=== PATIENT | male | born 1970 | race Caucasian/White ===

== ENCOUNTER 2023-10-14 20:10 | Inpatient (IN) | payer SELFPAY ==
[~2023-10-14 20:10] MED LIST: Iopamidol-370 76% 500 ML MDV (1 ML CHARGE) ONE
[2023-10-14 21:18] LABS: Hematocrit 31.1 % (42.0-52.0); Hemoglobin 11.5 g/dL (14.0-18.0); Mean Corpuscular Volume 86.6 fL (78.0-98.0); Platelet Count 37 10x3/uL (130-400); RBC Distribution Width 22.6 % (11.5-14.5); Red Blood Cell (RBC) Count 3.59 mill/uL (4.70-6.10)
[2023-10-14 21:21] LABS: INR-International Normal Ratio 2.7; PTT 44.4 sec (22.9-36.1); Prothrombin Time 29.2 sec (12.0-14.7)
[2023-10-14 21:25] LABS: ALT (SGPT) 78 U/L (8-55); AST (SGOT) 231 U/L (5-34); Acetaminophen Less than 10 mcg/mL (10.0-30.0); Albumin 2.1 g/dL (3.5-5.0); Alcohol Less than 10.0 mg/dL (Less than 10); Alkaline Phosphatase 167 U/L (40-110); Anion Gap 15 mmol/L (10-20); BUN (Urea Nitrogen) 8 mg/dL (8.4-25.7); Calc. Creatinine Clearance 0 mL/min (70-130); Calcium 7.4 mg/dL (7.8-10.44); Carbon Dioxide 18 mmol/L (22-29); Chloride 102 mmol/L (98-107); Estimated GFR 122; Globulin 3.4 g/dL (2.4-3.5); Glucose 88 mg/dL (70-105); Magnesium 1.6 mg/dL (1.6-2.6); Potassium 3.8 mmol/L (3.5-5.1); Protein, Total 5.5 g/dL (6.0-8.3); Salicylate Less than 8.0 mg/dL (15.0-30.0); Sodium 131 mmol/L (136-145)
[2023-10-14 21:53] LABS: Anisocytosis SLIGHT = 6-15 cells HPF (0-5); Band 1 % (5-11); Lymphocytes 2 % (21-51); Macrocytosis SLIGHT = 6-15 cells HPF (0-5); Monocytes 10 % (0-10); Neutrophil 87 % (42-75); Platelet Adequacy Comment Platelets Decreased; Polychromasia SLIGHT = 2-3 cells HPF (0-2); Target Cells MODERATE= 6-15 cells HPF (0-1)
[2023-10-14] MEDS ORDERED: LORazepam 2 MG/ML SYR.(CARPUJECT) ONE (22:51)
[2023-10-14] MEDS ORDERED: cefTRIAXone (ROCEPHIN) 1 GM VIAL ONE (22:51)
[2023-10-14] MEDS ORDERED: Acetaminophen 325 MG TAB PO PRN (23:49)
[2023-10-14] MEDS ORDERED: Ondansetron PF 4 MG/2 ML Vial IVP PRN (23:49)
[2023-10-15] MEDS ORDERED: Lorazepam 2 MG/ML VIAL IM PRN (00:02)
[2023-10-15] MEDS ORDERED: Lorazepam 1 MG TAB PO PRN (00:02)
[2023-10-15] MEDS ORDERED: Electrolyte Replacement Protocol FS SCH (00:15)
[2023-10-15 00:44] VITALS: BMI 39.4
[2023-10-15] MEDS: SODIUM CHLORIDE 0.9% IVPB SCH (00:46)
[2023-10-15] MEDS: PHENOBARBITAL SODIUM IVPB SCH (00:46)
[2023-10-15] MEDS: Multivitamins, Adult 10 ML, Thiamine HCl 100 MG, Folic Acid 1 MG in Dextrose 5 %-0.45 %... IV SCH (00:46)
[2023-10-15 01:45] LABS: Iron 70 ug/dL (65-175); Iron Binding Capacity, Total 251 mcg/dL (261-462)
[2023-10-15] MEDS: Pantoprazole 40 MG VIAL IVP SCH (02:01)
[2023-10-15] MEDS: Magnesium 2 GM/50 ML(in water) 2 GM in Premix 1 BAG IVPB SCH (02:01)
[2023-10-15] MEDS: Furosemide 20 MG (2 mL) VIAL SLOW IVP SCH ×2 (02:02→06:19)
[2023-10-15] MEDS: Thiamine HCl 200 MG/2 ML VIAL SLOW IVP SCH (02:02)
[2023-10-15] MEDS: Phytonadione 10 MG in Sodium Chloride 0.9% 50 ML IVPB SCH (02:05)
[2023-10-15] MEDS: Phytonadione 10 MG/ML AMP SLOW IVP SCH (02:34)
[2023-10-15] MEDS: Magnesium Sulfate 2 GM in Sodium Chloride 0.9% 100 ML IVPB SCH (02:35)
[2023-10-15 04:43] LABS: INR-International Normal Ratio 2.9; PTT 50.4 sec (22.9-36.1); Prothrombin Time 30.5 sec (12.0-14.7)
[2023-10-15 04:54] LABS: Phosphorus 2.8 mg/dL (2.3-4.7)
[2023-10-15 04:55] LABS: Hematocrit 27.2 % (42.0-52.0); Hemoglobin 10.3 g/dL (14.0-18.0); Mean Corpuscular HGB CONC 37.9 g/dL (32.0-36.0); Mean Corpuscular Hemoglobin 31.8 pg (27.0-31.0); Mean Platelet Volume 11.6 fL (7.4-10.4); Platelet Count 40 10x3/uL (130-400); RBC Distribution Width 21.7 % (11.5-14.5); Red Blood Cell (RBC) Count 3.24 mill/uL (4.70-6.10)
[2023-10-15 04:59] LABS: ALT (SGPT) 61 U/L (8-55); AST (SGOT) 183 U/L (5-34); Albumin 1.8 g/dL (3.5-5.0); Alkaline Phosphatase 137 U/L (40-110); Anion Gap 11 mmol/L (10-20); BUN (Urea Nitrogen) 8 mg/dL (8.4-25.7); Bilirubin, Total 21.5 mg/dL (0.2-1.2); Calc. Creatinine Clearance 249 mL/min (70-130); Calcium 7.2 mg/dL (7.8-10.44); Carbon Dioxide 23 mmol/L (22-29); Chloride 102 mmol/L (98-107); Estimated GFR 120; Globulin 2.7 g/dL (2.4-3.5); Glucose 77 mg/dL (70-105); Magnesium 2.1 mg/dL (1.6-2.6); Potassium 3.1 mmol/L (3.5-5.1); Protein, Total 4.5 g/dL (6.0-8.3); Sodium 133 mmol/L (136-145)
[2023-10-15 05:20] LABS: Band 3 % (5-11); Eosinophils 1 % (0-10); Hypochromia SLIGHT = 6-15 cells HPF (0-5); Large Platelets 0.9 % (0-5); Lymphocytes 3 % (21-51); Monocytes 7 % (0-10); Neutrophil 86 % (42-75); Platelet Adequacy Comment Platelets Decreased; Poikilocytosis MODERATE=16-30 cells HPF (0-5); Polychromasia SLIGHT = 2-3 cells HPF (0-2); Target Cells SLIGHT = 2-5 cells HPF (0-1)
[2023-10-15] MEDS: Potassium Chloride 20 MEQ TAB PO SCH (06:16)
[2023-10-15] MEDS: Multivit, Therapeutic 1 TAB PO SCH (08:51)
[2023-10-15] MEDS: Folic Acid 1 MG TAB PO SCH (08:51)
[2023-10-15] MEDS: Phytonadione 5 MG TAB PO SCH (10:36)
[2023-10-15 11:28] LABS: INR-International Normal Ratio 2.8; Prothrombin Time 29.7 sec (12.0-14.7)
[2023-10-15 13:57] LABS: Hematocrit 27.7 % (42.0-52.0); Hemoglobin 10.5 g/dL (14.0-18.0); Mean Corpuscular HGB CONC 37.9 g/dL (32.0-36.0); Mean Corpuscular Hemoglobin 32.8 pg (27.0-31.0); Mean Corpuscular Volume 86.6 fL (78.0-98.0); Mean Platelet Volume 10.1 fL (7.4-10.4); Platelet Count 41 10x3/uL (130-400); RBC Distribution Width 22.3 % (11.5-14.5)
[2023-10-15 14:13] LABS: INR-International Normal Ratio 2.4; Prothrombin Time 26.3 sec (12.0-14.7)
[2023-10-15] MEDS: Furosemide 40 MG (4 mL) VIAL SLOW IVP SCH (14:14)
[2023-10-15] MEDS ORDERED: Sodium Bicarbonate 2.5 MEQ/5 ML SDV ONE (14:15)
[2023-10-15] MEDS ORDERED: Lidocaine 1% PF 5 ML VIAL ONE (14:15)
[2023-10-15 17:22] LABS: RBC Count-Automated (BF) 1314 /cu.mm; WBC/Nucleated-Auto (BF) 0 /cu.mm
[2023-10-15 17:23] LABS: BF Color Yellow; Body Fluid Source Ascites Body Fluid; Clarity Clear (Clear); Tube # EDTA
[2023-10-15] MEDS: cefTRIAXone\\ROCEPHIN 1 GM in Sodium Chloride 0.9% 100 ML IVPB SCH (23:15)
[2023-10-16] MEDS ORDERED: Lorazepam 1 MG TAB PO PRN (00:02)
[2023-10-16 05:16] LABS: Hematocrit 26.9 % (42.0-52.0); Hemoglobin 10.1 g/dL (14.0-18.0); Mean Corpuscular HGB CONC 37.5 g/dL (32.0-36.0); Mean Corpuscular Hemoglobin 31.7 pg (27.0-31.0); Mean Corpuscular Volume 84.3 fL (78.0-98.0); Mean Platelet Volume 10.6 fL (7.4-10.4); Platelet Count 39 10x3/uL (130-400); RBC Distribution Width 22.4 % (11.5-14.5); Red Blood Cell (RBC) Count 3.19 mill/uL (4.70-6.10)
[2023-10-16 05:37] LABS: ALT (SGPT) 60 U/L (8-55); AST (SGOT) 161 U/L (5-34); Albumin 1.7 g/dL (3.5-5.0); Alkaline Phosphatase 119 U/L (40-110); Anion Gap 9 mmol/L (10-20); BUN (Urea Nitrogen) 10 mg/dL (8.4-25.7); Calc. Creatinine Clearance 207 mL/min (70-130); Calcium 7.3 mg/dL (7.8-10.44); Carbon Dioxide 25 mmol/L (22-29); Chloride 103 mmol/L (98-107); Estimated GFR 114; Globulin 2.7 g/dL (2.4-3.5); Glucose 73 mg/dL (70-105); Potassium 3.2 mmol/L (3.5-5.1); Protein, Total 4.4 g/dL (6.0-8.3); Sodium 134 mmol/L (136-145)
[2023-10-16 05:45] LABS: Anisocytosis MODERATE=16-30 cells HPF (0-5); Eosinophils 3 % (0-10); Large Platelets 3.4 % (0-5); Lymphocytes 7 % (21-51); Monocytes 6 % (0-10); Neutrophil 83 % (42-75); Ovalocytes SLIGHT = 2-5 cells HPF (0-1); Platelet Adequacy Comment Significant Decrease; Polychromasia MODERATE = 3-4 cells HPF (0-2); Smudge Cells 22.5 %; Target Cells SLIGHT = 2-5 cells HPF (0-1)
[2023-10-16] MEDS: Potassium Chloride 20 MEQ TAB PO SCH ×2 (05:53→10:24)
[2023-10-16 05:58] LABS: HBCM Index 0.28 S/CO (0-0.79); HBSAB Concentration Less than 8.00 mIU/mL; HBsAg Index 0.29 S/CO (0-0.99); Hep A IgM AB NONREACTIVE (NonReactive); Hep A IgM S/CO 0.24 S/CO (0-0.79); Hep B Surf AB NONREACTIVE (NonReactive); Hep B Surf Ag NONREACTIVE S/CO (NonReactive); Hep C IgG Ab NONREACTIVE S/CO (NonReactive); Hep C Index 0.27 S/CO (0-0.79); Hepatitis B Core IgM Abs NONREACTIVE S/CO (NonReactive)
[2023-10-16] MEDS: prednisoLONE 10 MG ODT TAB PO SCH (17:52)
[2023-10-17] MEDS ORDERED: Lorazepam 1 MG TAB PO PRN (00:02)
[2023-10-17 07:23] LABS: ALT (SGPT) 57 U/L (8-55); AST (SGOT) 159 U/L (5-34); Albumin 1.8 g/dL (3.5-5.0); Alkaline Phosphatase 148 U/L (40-110); Anion Gap 14 mmol/L (10-20); BUN (Urea Nitrogen) 11 mg/dL (8.4-25.7); Bilirubin, Total 21.9 mg/dL (0.2-1.2); Calc. Creatinine Clearance 211 mL/min (70-130); Calcium 7.7 mg/dL (7.8-10.44); Carbon Dioxide 23 mmol/L (22-29); Chloride 101 mmol/L (98-107); Estimated GFR 114; Glucose 121 mg/dL (70-105); Potassium 3.7 mmol/L (3.5-5.1); Protein, Total 4.8 g/dL (6.0-8.3); Sodium 134 mmol/L (136-145)
[2023-10-17 08:19] LABS: #Basophils Less than 0.03 10x3/uL (0.0-0.2); #Eosinphils Less than 0.03 10x3/uL (0.0-0.7); %Lymphocytes 10.1 % (21.0-51.0); %Monocytes 8.5 % (0.0-10.0); %Neutrophils 81.1 % (42.0-75.0); Hematocrit 28.9 % (42.0-52.0); Hemoglobin 10.6 g/dL (14.0-18.0); Mean Corpuscular HGB CONC 36.7 g/dL (32.0-36.0); Mean Corpuscular Hemoglobin 31.9 pg (27.0-31.0); Mean Platelet Volume 10.7 fL (7.4-10.4); Platelet Count 38 10x3/uL (130-400); RBC Distribution Width 22.2 % (11.5-14.5); Red Blood Cell (RBC) Count 3.32 mill/uL (4.70-6.10)
[2023-10-17] MEDS: prednisoLONE 10 MG ODT TAB PO SCH (09:32)
[2023-10-17] MEDS: Spironolactone 100 MG TAB PO SCH (12:43)
[2023-10-18] MEDS ORDERED: Lorazepam 0.5 MG TAB PO PRN (00:02)
[2023-10-18 06:29] VITALS: TEMP 98.3
[2023-10-18] MEDS: Spironolactone 100 MG TAB PO SCH (08:51)
[2023-10-18] MEDS: Thiamine 100 MG TAB PO SCH (08:51)
[2023-10-18 10:15] LABS: Smooth Muscle Total ABS 9 Units (0-19)
[2023-10-18 15:48] VITALS: BP 118/66
[2023-10-19 01:17] LABS: Hepatitis A Total ABS Positive (Negative)
[2023-10-19 11:54] LABS: ANA Symphony (Qualitative) Negative (Negative); ANA Symphony (Quantitative) 0.4 Ratio (< 0.7 Negative); EliA Vaculitis New Method **** NEW METHOD ****; Mitochondrial Ab 1.3 U/mL (<4 Negative)
== END 2023-10-18 17:15 | disposition home or self-care (01) | DRG 433 ==
LOC: ERS 20:10 → 2NO 22:19
PROVIDERS: ADMIT Internal Medicine; ATTEND Hospitalist
PROC: 0W9G3ZZ Drainage of Peritoneal Cavity, Percutaneous Approach (ICD-10-PCS; principal; 2023-10-15)
PROC: 30233K1 Transfusion of Nonautologous Frozen Plasma into Peripheral Vein, Percutaneous Approach (ICD-10-PCS; 2023-10-15)
DX: K70.31 Alcoholic cirrhosis of liver with ascites (principal); D68.9 Coagulation defect, unspecified; K76.6 Portal hypertension; K70.11 Alcoholic hepatitis with ascites; E66.9 Obesity, unspecified; F10.10 Alcohol abuse, uncomplicated; D64.9 Anemia, unspecified; E88.09 Other disorders of plasma-protein metabolism, not elsewhere classified; E80.6 Other disorders of bilirubin metabolism; D69.59 Other secondary thrombocytopenia; K42.9 Umbilical hernia without obstruction or gangrene; K40.90 Unilateral inguinal hernia, without obstruction or gangrene, not specified as recurrent; Z68.37 Body mass index [BMI] 37.0-37.9, adult
CPT/HCPCS: 36415; 36430; 49083; 71045; 74177; 76705; 80053; 80074; 80307; 82105; 82140; 82248; 82274; 82390; 82728; 83516; 83540; 83550; 83605; 83735; 83880; 84100; 84443; 84484; 85025; 85610; 85730; 86015; 86038; 86225; 86706; 86708; 86850; 86900; 86901; 87070; 87205; 89051; 93005; 96374; 96375; C9113; J0696; J1940; J2060; J2560; J3411; J3430; J3475; J3490; J7042; P9059; Q9967

== ENCOUNTER 2023-11-03 14:26 | Inpatient (IN) | payer SELFPAY ==
[2023-11-03 15:11] LABS: Base Excess -1.5 mEq/L (-2.0 to +3.0); Calcium, Ionized (venous) 1.09 mmol/L (1.16-1.32); Chloride (VBG) 104 mmol/L (98-106); Hematocrit-VBG 41 % (42.0-52.0); Hemoglobin (Hb) 14.1 g/dL (13.1-17.2); Potassium (VBG) 4.26 mmol/L (3.70-5.30); Sodium 137 mmol/L (133-146); pH (venous) 7.507 (7.32-7.43)
[2023-11-03 15:19] LABS: INR-International Normal Ratio 1.9; Prothrombin Time 21.8 sec (12.0-14.7)
[2023-11-03 15:20] LABS: PTT 30.2 sec (22.9-36.1)
[2023-11-03 15:31] LABS: Troponin I 0.082 ng/mL (< 0.028)
[2023-11-03 15:31] LABS: #Basophils Less than 0.03 10x3/uL (0.0-0.2); %Basophils 0.1 % (0.0-1.0); %Eosinophils 0.2 % (0.0-10.0); %Lymphocytes 8.1 % (21.0-51.0); %Monocytes 9.3 % (0.0-10.0); %Neutrophils 81.8 % (42.0-75.0); Hematocrit 35.7 % (42.0-52.0); Hemoglobin 13.3 g/dL (14.0-18.0); Mean Corpuscular HGB CONC 37.3 g/dL (32.0-36.0); Mean Corpuscular Hemoglobin 32.3 pg (27.0-31.0); Mean Corpuscular Volume 86.7 fL (78.0-98.0); Platelet Count 51 10x3/uL (130-400); RBC Distribution Width 22.4 % (11.5-14.5); Red Blood Cell (RBC) Count 4.12 mill/uL (4.70-6.10)
[2023-11-03 15:37] LABS: ALT (SGPT) 83 U/L (8-55); AST (SGOT) 108 U/L (5-34); Albumin 2.3 g/dL (3.5-5.0); Alkaline Phosphatase 176 U/L (40-110); Anion Gap 18 mmol/L (10-20); BUN (Urea Nitrogen) 11 mg/dL (8.4-25.7); Bilirubin, Total 16.1 mg/dL (0.2-1.2); Calc. Creatinine Clearance 0 mL/min (70-130); Calcium 8.1 mg/dL (7.8-10.44); Carbon Dioxide 16 mmol/L (22-29); Chloride 106 mmol/L (98-107); Estimated GFR 113; Glucose 78 mg/dL (70-105); Potassium 5.8 mmol/L (3.5-5.1); Protein, Total 6.3 g/dL (6.0-8.3); Sodium 134 mmol/L (136-145)
[2023-11-03 15:50] LABS: Lipase 81 U/L (8-78); Magnesium 1.7 mg/dL (1.6-2.6)
[2023-11-03 15:51] LABS: Acetaminophen Less than 10 mcg/mL (10.0-30.0); Alcohol Less than 10.0 mg/dL (Less than 10); Salicylate Less than 8.0 mg/dL (15.0-30.0)
[2023-11-03] MEDS ORDERED: Ondansetron PF 4 MG/2 ML Vial ONE (16:06)
[2023-11-03] MEDS ORDERED: Cefepime 2 GM VIAL ONE (16:06)
[2023-11-03] MEDS ORDERED: Sodium Chloride 0.9% 100 ML ONE (16:06)
[2023-11-03 16:08] LABS: Anisocytosis SLIGHT = 6-15 cells (100X) (0-5/hpf); Platelet Adequacy Comment Appears Decreased; Polychromasia SLIGHT = 2-3 cells (100X) (0-2/hpf)
[2023-11-03] MEDS ORDERED: Lactulose 20 GM (30 mL) UDCUP ONE (16:51)
[2023-11-03 17:52] LABS: CAUTI Indications for Culture Alt mental st,lethar; Clarity Clear (Clear); Squamous Epithelial 0-3 HPF (0-3)
[2023-11-03 18:00] LABS: Amphetamine Not Detected (NotDetected); Barbiturates Screen Not Detected (NotDetected); Benzodiazepine Screen Not Detected (NotDetected); Cocaine Metabolite Screen Not Detected (NotDetected); Leukocyte Unable to Interpret Leu/uL (Negative); Methadone Not Detected (NotDetected); Methamphetamine Not Detected (NotDetected); Nitrite Unable to Interpret (Negative); Opiate Screen Not Detected (NotDetected); Oxycodone Screen Not Detected (NotDetected); Phencyclidine (PCP) Not Detected (NotDetected); Specific Gravity, Urine 1.026 (1.002-1.036); THC/Cannabinoid Screen Not Detected (NotDetected); Tricyclic Screen Not Detected (NotDetected); pH, Urine 6.5 (5.0-9.0)
[2023-11-03 18:01] LABS: Bilirubin Unable to Interpret (Negative); Blood, Urine Unable to Interpret (Negative); Glucose, Urine (Dipstick) Unable to Interpret mg/dL (Negative); Ketone, Urine Unable to Interpret mg/dL (Negative); Protein, Urine (Dipstick) Unable to Interpret mg/dL (Neg-Trace); Urobilinogen UNABLE TO INTERPRET mg/dL (Less than 2)
[2023-11-03 18:04] LABS: Bacteria/HPF 1+ HPF (None Seen)
[2023-11-03 18:05] LABS: Urine Culture Reflex No No
[2023-11-03] MEDS: Vancomycin (BATCH) 2.5 GM in Premix 1 BAG IVPB SCH (18:20)
[2023-11-03 18:45] LABS: Lactic Acid 2.6 mmol/L (0.5-2.2)
[2023-11-03 19:00] LABS: Influenza A by NAA Not Detected (NotDetected); Influenza B by NAA Not Detected (NotDetected); SARS-CoV-2 NAA Rapid Test Not Detected (NotDetected)
[2023-11-03] MEDS ORDERED: Ondansetron ODT 4 MG TAB PO PRN (20:13)
[2023-11-03] MEDS ORDERED: Acetaminophen 325 MG TAB PO PRN (20:13)
[2023-11-03] MEDS ORDERED: Ondansetron PF 4 MG/2 ML Vial IVP PRN (20:13)
[2023-11-03] MEDS ORDERED: Acetaminophen 650 MG Suppository PR PRN (20:13)
[2023-11-03] MEDS ORDERED: Lorazepam 2 MG/ML VIAL IM PRN (20:18)
[2023-11-03] MEDS ORDERED: Electrolyte Replacement Protocol 1 EACH FS SCH (20:30)
[2023-11-03] MEDS ORDERED: Magnesium 2 GM/50 ML BAG (IN WATER) ONE (21:20)
[2023-11-03] MEDS ORDERED: Albumin 25% 100 ML ONE (21:20)
[2023-11-03] MEDS ORDERED: Thiamine HCl 200 MG/2 ML VIAL ONE (21:20)
[2023-11-03] MEDS ORDERED: Thiamine 100 MG TAB ONE (21:22)
[2023-11-03] MEDS: Magnesium 2 GM/50 ML(in water) 2 GM in Premix 1 BAG IVPB SCH (21:24)
[2023-11-03] MEDS: Albumin 25% 25 GM (100 mL) BOT IVPB SCH (21:24)
[2023-11-03] MEDS: Thiamine 100 MG TAB PO SCH (21:24)
[2023-11-03] MEDS ORDERED: Lorazepam 1 MG TAB ONE (22:04)
[2023-11-03] MEDS: Lorazepam 1 MG TAB PO PRN (22:10)
[2023-11-03 23:00] LABS: Lactic Acid 3.5 mmol/L (0.5-2.2)
[2023-11-03 23:09] LABS: Troponin I 0.058 ng/mL (< 0.028)
[2023-11-04] MEDS ORDERED: Sodium Chloride 0.9% 100 ML ONE (05:29)
[2023-11-04] MEDS ORDERED: Cefepime 1 GM VIAL ONE (05:29)
[2023-11-04] MEDS: Cefepime 1 GM in Sodium Chloride 0.9% 100 ML IVPB SCH (05:31)
[2023-11-04 05:41] LABS: #Basophils Less than 0.03 10x3/uL (0.0-0.2); %Basophils 0.2 % (0.0-1.0); %Lymphocytes 10.2 % (21.0-51.0); %Monocytes 9.7 % (0.0-10.0); %Neutrophils 77.3 % (42.0-75.0); Hematocrit 31.4 % (42.0-52.0); Hemoglobin 11.3 g/dL (14.0-18.0); Mean Corpuscular Hemoglobin 32.4 pg (27.0-31.0); Mean Platelet Volume 10.1 fL (7.4-10.4); Platelet Count 35 10x3/uL (130-400); RBC Distribution Width 22.8 % (11.5-14.5); Red Blood Cell (RBC) Count 3.49 mill/uL (4.70-6.10)
[2023-11-04 05:49] LABS: ALT (SGPT) 63 U/L (8-55); AST (SGOT) 64 U/L (5-34); Albumin 2.1 g/dL (3.5-5.0); Alkaline Phosphatase 114 U/L (40-110); Anion Gap 14 mmol/L (10-20); BUN (Urea Nitrogen) 11 mg/dL (8.4-25.7); Bilirubin, Total 14.9 mg/dL (0.2-1.2); Calc. Creatinine Clearance 254 mL/min (70-130); Calcium 7.7 mg/dL (7.8-10.44); Carbon Dioxide 18 mmol/L (22-29); Chloride 110 mmol/L (98-107); Estimated GFR 120; Glucose 79 mg/dL (70-105); Potassium 3.8 mmol/L (3.5-5.1); Protein, Total 5.1 g/dL (6.0-8.3); Sodium 138 mmol/L (136-145)
[2023-11-04] MEDS ORDERED: Folic Acid 1 MG TAB ONE (10:00)
[2023-11-04] MEDS ORDERED: Lactulose 20 GM (30 mL) UDCUP ONE (10:01)
[2023-11-04] MEDS ORDERED: Pantoprazole DR 40 MG TAB ONE (10:01)
[2023-11-04] MEDS ORDERED: predniSONE 20 MG TAB ONE (10:01)
[2023-11-04] MEDS ORDERED: Furosemide 40 MG TAB ONE (10:01)
[2023-11-04] MEDS ORDERED: Multivit, Therapeutic 1 TAB ONE (10:01)
[2023-11-04] MEDS: Spironolactone 100 MG TAB PO SCH (10:31)
[2023-11-04] MEDS: Lactulose 20 GM (30 mL) UDCUP PO SCH (10:31)
[2023-11-04] MEDS: Pantoprazole DR 40 MG TAB PO SCH (10:31)
[2023-11-04] MEDS: Multivit, Therapeutic 1 TAB PO SCH (10:31)
[2023-11-04] MEDS: Folic Acid 1 MG TAB PO SCH (10:31)
[2023-11-04] MEDS: Furosemide 40 MG TAB PO SCH (10:31)
[2023-11-04] MEDS: prednisoLONE 10 MG ODT TAB PO SCH (10:31)
[2023-11-04] MEDS ORDERED: Lidocaine 1% PF 5 ML VIAL ONE (11:26)
[2023-11-04 14:25] VITALS: BMI 31.8
[2023-11-04] MEDS: Albumin 25% 25 GM (100 mL) BOT IVPB SCH (16:29)
[2023-11-04] MEDS: Cefepime 2 GM in Sodium Chloride 0.9% 100 ML IVPB SCH (16:31)
[2023-11-04] MEDS: Vancomycin (BATCH) 1.25 GM in Premix 1 BAG IVPB SCH (16:59)
[2023-11-04] MEDS ORDERED: Lorazepam 1 MG TAB PO PRN (20:19)
[2023-11-04] MEDS ORDERED: Vancomycin 1 GM in Sodium Chloride 0.9% 250 ML 250 ML IVPB SCH (21:00)
[2023-11-05] MEDS ORDERED: Acetaminophen 650 MG/20.3 ML UDCUP PO PRN (01:52)
[2023-11-05] MEDS: Vancomycin (BATCH) 1.25 GM in Premix 1 BAG IVPB SCH ×2 (02:13→12:53)
[2023-11-05 04:43] LABS: Lactic Acid 1.7 mmol/L (0.5-2.2)
[2023-11-05 04:47] LABS: Vancomycin, Random 39.5 ug/mL (See Comment)
[2023-11-05 04:51] LABS: ALT (SGPT) 56 U/L (8-55); AST (SGOT) 63 U/L (5-34); Albumin 2.1 g/dL (3.5-5.0); Alkaline Phosphatase 103 U/L (40-110); Anion Gap 11 mmol/L (10-20); BUN (Urea Nitrogen) 12 mg/dL (8.4-25.7); Bilirubin, Total 13.5 mg/dL (0.2-1.2); Calc. Creatinine Clearance 209 mL/min (70-130); Calcium 7.8 mg/dL (7.8-10.44); Carbon Dioxide 17 mmol/L (22-29); Chloride 107 mmol/L (98-107); Estimated GFR 121; Globulin 2.8 g/dL (2.4-3.5); Glucose 116 mg/dL (70-105); Magnesium 1.6 mg/dL (1.6-2.6); Potassium 3.4 mmol/L (3.5-5.1); Protein, Total 4.9 g/dL (6.0-8.3); Sodium 132 mmol/L (136-145)
[2023-11-05 06:09] LABS: #Basophils Less than 0.03 10x3/uL (0.0-0.2); %Basophils 0.1 % (0.0-1.0); %Eosinophils 2.7 % (0.0-10.0); %Lymphocytes 13.8 % (21.0-51.0); %Monocytes 9.9 % (0.0-10.0); %Neutrophils 73.1 % (42.0-75.0); Hematocrit 28.9 % (42.0-52.0); Hemoglobin 10.6 g/dL (14.0-18.0); Mean Corpuscular HGB CONC 36.7 g/dL (32.0-36.0); Mean Corpuscular Hemoglobin 32.2 pg (27.0-31.0); Mean Corpuscular Volume 87.8 fL (78.0-98.0); Platelet Count 35 10x3/uL (130-400); RBC Distribution Width 22.5 % (11.5-14.5); Red Blood Cell (RBC) Count 3.29 mill/uL (4.70-6.10)
[2023-11-05] MEDS: Potassium Chloride 20 MEQ TAB PO SCH (09:40)
[2023-11-05] MEDS: Magnesium 2 GM/50 ML(in water) 2 GM in Premix 1 BAG IVPB SCH (09:40)
[2023-11-05] MEDS: prednisoLONE 10 MG ODT TAB PO SCH (09:41)
[2023-11-05] MEDS: Lorazepam 1 MG TAB PO PRN (21:02)
[2023-11-05] MEDS: diphenhydrAMINE 25 MG CAP PO SCH (21:55)
[2023-11-06 05:43] LABS: Anion Gap 11 mmol/L (10-20); BUN (Urea Nitrogen) 10 mg/dL (8.4-25.7); Calc. Creatinine Clearance 226 mL/min (70-130); Calcium 7.6 mg/dL (7.8-10.44); Carbon Dioxide 19 mmol/L (22-29); Chloride 108 mmol/L (98-107); Estimated GFR 124; Glucose 82 mg/dL (70-105); Potassium 4.1 mmol/L (3.5-5.1); Sodium 134 mmol/L (136-145)
[2023-11-06 06:12] LABS: Vancomycin, Random 20.6 ug/mL (See Comment)
[2023-11-06 12:06] VITALS: BP 105/60; TEMP 98
[2023-11-06] MEDS ORDERED: Lorazepam 0.5 MG TAB PO PRN (20:19)
== END 2023-11-06 16:43 | disposition home or self-care (01) | DRG 872 ==
LOC: ERS 14:26 → 2NO 18:45 → ERHOLD 18:56 → 2NO 11-04 12:55
PROVIDERS: ADMIT Student in an Organized Health Care Education/Training Program; ATTEND Internal Medicine
DX: A41.01 Sepsis due to Methicillin susceptible Staphylococcus aureus (principal); I24.89 Other forms of acute ischemic heart disease; K70.30 Alcoholic cirrhosis of liver without ascites; E87.5 Hyperkalemia; D69.6 Thrombocytopenia, unspecified; K76.82 Hepatic encephalopathy; Z87.891 Personal history of nicotine dependence; E87.6 Hypokalemia; T38.0X5A Adverse effect of glucocorticoids and synthetic analogues, initial encounter; Z79.899 Other long term (current) drug therapy
CPT/HCPCS: 36415; 49083; 70450; 71045; 80048; 80053; 80202; 80306; 80307; 81001; 82140; 82248; 82805; 83605; 83690; 83735; 83880; 84484; 85025; 85610; 85730; 87040; 87077; 87086; 87186; 93005; 94760; J0692; J2405; J3370; J3411; J3475; J3490; J7512; P9047

== ENCOUNTER 2023-12-11 13:11 | Inpatient (IN) | payer SELFPAY ==
[2023-12-11 15:12] LABS: #Basophils 0.03 10x3/uL (0.0-0.2); %Basophils 0.3 % (0.0-1.0); %Eosinophils 0.7 % (0.0-10.0); %Lymphocytes 10.7 % (21.0-51.0); %Monocytes 12.2 % (0.0-10.0); %Neutrophils 75.8 % (42.0-75.0); Hematocrit 32.1 % (42.0-52.0); Mean Corpuscular HGB CONC 37.4 g/dL (32.0-36.0); Mean Corpuscular Hemoglobin 32.7 pg (27.0-31.0); Mean Corpuscular Volume 87.5 fL (78.0-98.0); Platelet Count 96 10x3/uL (130-400); RBC Distribution Width 18.8 % (11.5-14.5); Red Blood Cell (RBC) Count 3.67 mill/uL (4.70-6.10)
[2023-12-11 15:19] LABS: Actual Bicarbonate (HCO3v) 17.3 mEq/L (22-28); Analyzer IN Cardio ER; Base Excess -6.1 mEq/L (-2.0 to +3.0); Calcium, Ionized (venous) 1.04 mmol/L (1.16-1.32); Chloride (VBG) 101 mmol/L (98-106); Hematocrit-VBG 38 % (42.0-52.0); Potassium (VBG) 4.77 mmol/L (3.70-5.30); Sodium 128 mmol/L (133-146); pH (venous) 7.404 (7.32-7.43)
[2023-12-11 15:20] LABS: ALT (SGPT) 112 U/L (8-55); AST (SGOT) 241 U/L (5-34); Albumin 1.9 g/dL (3.5-5.0); Alkaline Phosphatase 182 U/L (40-110); Anion Gap 14 mmol/L (10-20); BUN (Urea Nitrogen) 19 mg/dL (8.4-25.7); Bilirubin, Total 10.5 mg/dL (0.2-1.2); Calc. Creatinine Clearance 0 mL/min (70-130); Calcium 7.7 mg/dL (7.8-10.44); Carbon Dioxide 15 mmol/L (22-29); Chloride 105 mmol/L (98-107); Estimated GFR 105; Globulin 4.1 g/dL (2.4-3.5); Glucose 88 mg/dL (70-105); Lipase 285 U/L (8-78); Magnesium 1.7 mg/dL (1.6-2.6); Potassium 4.9 mmol/L (3.5-5.1); Sodium 129 mmol/L (136-145)
[2023-12-11 15:23] LABS: Troponin I 0.018 ng/mL (< 0.028)
[2023-12-11] MEDS ORDERED: Lactulose 20 GM (30 mL) UDCUP ONE (15:26)
[2023-12-11] MEDS ORDERED: Thiamine HCl 200 MG/2 ML VIAL ONE (15:33)
[2023-12-11 16:22] LABS: Acetaminophen Less than 10 mcg/mL (10.0-30.0); Alcohol Less than 10.0 mg/dL (Less than 10); Salicylate Less than 8.0 mg/dL (15.0-30.0)
[2023-12-11 18:18] LABS: Lactic Acid 3.6 mmol/L (0.5-2.2)
[2023-12-11 19:19] VITALS: BMI 35.4
[2023-12-11] MEDS: Thiamine 100 MG TAB PO SCH (21:06)
[2023-12-11] MEDS: Lactulose 20 GM (30 mL) UDCUP PO SCH (21:06)
[2023-12-11] MEDS: Sodium Bicarb 50 mEq/50 ML VIAL IVP SCH (21:06)
[2023-12-11] MEDS: Albumin 25% 25 GM (100 mL) BOT IVPB SCH (22:40)
[2023-12-12 06:25] LABS: #Basophils 0.05 10x3/uL (0.0-0.2); %Basophils 0.6 % (0.0-1.0); %Eosinophils 2.8 % (0.0-10.0); %Lymphocytes 13.3 % (21.0-51.0); %Monocytes 17.9 % (0.0-10.0); %Neutrophils 64.9 % (42.0-75.0); Hematocrit 27.4 % (42.0-52.0); Hemoglobin 10.2 g/dL (14.0-18.0); Mean Corpuscular HGB CONC 37.2 g/dL (32.0-36.0); Mean Corpuscular Hemoglobin 32.4 pg (27.0-31.0); Mean Platelet Volume 9.9 fL (7.4-10.4); Platelet Count 76 10x3/uL (130-400); RBC Distribution Width 18.6 % (11.5-14.5); Red Blood Cell (RBC) Count 3.15 mill/uL (4.70-6.10)
[2023-12-12 06:27] LABS: Lactic Acid 2.2 mmol/L (0.5-2.2); Lactic Acid 2.3 mmol/L (0.5-2.2)
[2023-12-12 06:33] LABS: ALT (SGPT) 86 U/L (8-55); AST (SGOT) 180 U/L (5-34); Albumin 1.9 g/dL (3.5-5.0); Alkaline Phosphatase 120 U/L (40-110); Anion Gap 13 mmol/L (10-20); BUN (Urea Nitrogen) 18 mg/dL (8.4-25.7); Calc. Creatinine Clearance 155 mL/min (70-130); Calcium 7.5 mg/dL (7.8-10.44); Carbon Dioxide 17 mmol/L (22-29); Chloride 107 mmol/L (98-107); Estimated GFR 106; Globulin 3.2 g/dL (2.4-3.5); Glucose 81 mg/dL (70-105); Potassium 3.9 mmol/L (3.5-5.1); Protein, Total 5.1 g/dL (6.0-8.3); Sodium 133 mmol/L (136-145)
[2023-12-12 07:39] LABS: INR-International Normal Ratio 2.6; PTT 55.6 sec (22.9-36.1)
[2023-12-12] MEDS: Spironolactone 100 MG TAB PO SCH (08:42)
[2023-12-12] MEDS: Multivit, Therapeutic 1 TAB PO SCH (08:42)
[2023-12-12] MEDS: Pantoprazole DR 40 MG TAB PO SCH (08:42)
[2023-12-12] MEDS: Furosemide 40 MG TAB PO SCH (08:42)
[2023-12-12] MEDS: prednisoLONE 10 MG ODT TAB PO SCH (08:42)
[2023-12-12] MEDS: Folic Acid 1 MG TAB PO SCH (08:42)
[2023-12-12] MEDS ORDERED: CEFAZOLIN 2 GM in Sodium Chloride 0.9% 100 ML IVPB SCH (14:00)
[2023-12-12] MEDS: Ondansetron PF 4 MG/2 ML Vial IVP PRN (18:05)
[2023-12-12] MEDS: Lactulose 20 GM (30 mL) UDCUP PO SCH (20:12)
[2023-12-12] MEDS: Cefepime 1 GM in Sodium Chloride 0.9% 100 ML IVPB SCH (20:12)
[2023-12-12] MEDS: hydrOXYzine 25 MG TAB PO SCH (20:55)
[2023-12-13 06:43] LABS: #Basophils Less than 0.03 10x3/uL (0.0-0.2); #Eosinphils Less than 0.03 10x3/uL (0.0-0.7); %Basophils 0.2 % (0.0-1.0); %Eosinophils 0.2 % (0.0-10.0); %Lymphocytes 11.5 % (21.0-51.0); %Monocytes 12.2 % (0.0-10.0); %Neutrophils 75.6 % (42.0-75.0); Hematocrit 28.3 % (42.0-52.0); Hemoglobin 10.6 g/dL (14.0-18.0); Mean Corpuscular HGB CONC 37.5 g/dL (32.0-36.0); Mean Corpuscular Hemoglobin 32.3 pg (27.0-31.0); Mean Corpuscular Volume 86.3 fL (78.0-98.0); Mean Platelet Volume 10.7 fL (7.4-10.4); Platelet Count 69 10x3/uL (130-400); RBC Distribution Width 18.6 % (11.5-14.5); Red Blood Cell (RBC) Count 3.28 mill/uL (4.70-6.10)
[2023-12-13 07:11] LABS: ALT (SGPT) 80 U/L (8-55); AST (SGOT) 150 U/L (5-34); Albumin 1.8 g/dL (3.5-5.0); Alkaline Phosphatase 109 U/L (40-110); Anion Gap 11 mmol/L (10-20); BUN (Urea Nitrogen) 16 mg/dL (8.4-25.7); Bilirubin, Total 8.1 mg/dL (0.2-1.2); Calc. Creatinine Clearance 158 mL/min (70-130); Calcium 7.7 mg/dL (7.8-10.44); Carbon Dioxide 19 mmol/L (22-29); Chloride 109 mmol/L (98-107); Estimated GFR 107; Globulin 3.3 g/dL (2.4-3.5); Glucose 95 mg/dL (70-105); Potassium 4.4 mmol/L (3.5-5.1); Protein, Total 5.1 g/dL (6.0-8.3); Sodium 135 mmol/L (136-145)
[2023-12-13] MEDS ORDERED: Lidocaine 1% PF 5 ML VIAL ONE (15:48)
[2023-12-13] MEDS ORDERED: Sodium Bicarbonate 2.5 MEQ/5 ML SDV ONE (15:49)
[2023-12-13] MEDS ORDERED: Albumin 25% 100 ML ONE ×2 (17:04→17:27)
[2023-12-13 19:56] LABS: RBC Count-Automated (BF) 496 /cu.mm; WBC/Nucleated-Auto (BF) 219 /cu.mm
[2023-12-13 20:05] LABS: BF Color Yellow; Body Fluid Source Ascites Body Fluid; Clarity Clear (Clear); Tube # EDTA
[2023-12-13 20:15] LABS: Fluid, Glucose 105 mg/dL (Not Available); Fluid, LDH 43 U/L (Not Available); Fluid, Protein Less than 0.8 g/dL (Not Available)
[2023-12-13 20:19] LABS: BF Segmented Neutrophils 35 %; Cell Count Non Hematic 53 %; Lymphocytes 12 %
[2023-12-13] MEDS: Cefepime 2 GM in Sodium Chloride 0.9% 100 ML IVPB SCH (20:23)
[2023-12-13] MEDS: hydrOXYzine 25 MG TAB PO SCH (21:05)
[2023-12-14 07:21] LABS: ALT (SGPT) 66 U/L (8-55); AST (SGOT) 115 U/L (5-34); Albumin 2.3 g/dL (3.5-5.0); Alkaline Phosphatase 130 U/L (40-110); Anion Gap 10 mmol/L (10-20); BUN (Urea Nitrogen) 16 mg/dL (8.4-25.7); Bilirubin, Total 7.1 mg/dL (0.2-1.2); Calc. Creatinine Clearance 155 mL/min (70-130); Calcium 7.6 mg/dL (7.8-10.44); Carbon Dioxide 19 mmol/L (22-29); Chloride 111 mmol/L (98-107); Estimated GFR 106; Globulin 2.9 g/dL (2.4-3.5); Glucose 79 mg/dL (70-105); Magnesium 1.7 mg/dL (1.6-2.6); Protein, Total 5.2 g/dL (6.0-8.3); Sodium 136 mmol/L (136-145)
[2023-12-14 07:23] LABS: #Basophils 0.03 10x3/uL (0.0-0.2); %Basophils 0.4 % (0.0-1.0); %Eosinophils 2.9 % (0.0-10.0); %Lymphocytes 18.1 % (21.0-51.0); %Monocytes 16.7 % (0.0-10.0); %Neutrophils 61.5 % (42.0-75.0); Hematocrit 28.1 % (42.0-52.0); Hemoglobin 10.4 g/dL (14.0-18.0); Mean Corpuscular Hemoglobin 32.7 pg (27.0-31.0); Mean Corpuscular Volume 88.4 fL (78.0-98.0); Platelet Count 64 10x3/uL (130-400); RBC Distribution Width 18.8 % (11.5-14.5); Red Blood Cell (RBC) Count 3.18 mill/uL (4.70-6.10)
[2023-12-14 07:27] LABS: INR-International Normal Ratio 2.6; PTT 54.2 sec (22.9-36.1)
[2023-12-14] MEDS: cefTRIAXone\\ROCEPHIN 2 GM in Sodium Chloride 0.9% 100 ML IVPB SCH (20:27)
[2023-12-14] MEDS: Melatonin 3 MG TAB PO PRN (21:19)
[2023-12-14] MEDS: hydrOXYzine 25 MG TAB PO SCH (21:19)
[2023-12-15 06:40] LABS: #Basophils 0.03 10x3/uL (0.0-0.2); %Basophils 0.4 % (0.0-1.0); %Eosinophils 3.8 % (0.0-10.0); %Monocytes 16.3 % (0.0-10.0); Hematocrit 30.6 % (42.0-52.0); Hemoglobin 11.2 g/dL (14.0-18.0); Mean Corpuscular HGB CONC 36.6 g/dL (32.0-36.0); Mean Corpuscular Hemoglobin 32.7 pg (27.0-31.0); Mean Corpuscular Volume 89.2 fL (78.0-98.0); Mean Platelet Volume 10.9 fL (7.4-10.4); Platelet Count 64 10x3/uL (130-400); RBC Distribution Width 18.6 % (11.5-14.5); Red Blood Cell (RBC) Count 3.43 mill/uL (4.70-6.10)
[2023-12-15 06:41] LABS: INR-International Normal Ratio 2.4; PTT 51.9 sec (22.9-36.1); Prothrombin Time 26.4 sec (12.0-14.7)
[2023-12-15 06:47] LABS: ALT (SGPT) 64 U/L (8-55); AST (SGOT) 108 U/L (5-34); Albumin 2.3 g/dL (3.5-5.0); Alkaline Phosphatase 175 U/L (40-110); Anion Gap 11 mmol/L (10-20); BUN (Urea Nitrogen) 15 mg/dL (8.4-25.7); Bilirubin, Total 7.2 mg/dL (0.2-1.2); Calc. Creatinine Clearance 167 mL/min (70-130); Calcium 7.7 mg/dL (7.8-10.44); Carbon Dioxide 20 mmol/L (22-29); Chloride 106 mmol/L (98-107); Estimated GFR 109; Globulin 3.4 g/dL (2.4-3.5); Glucose 75 mg/dL (70-105); Magnesium 1.7 mg/dL (1.6-2.6); Protein, Total 5.7 g/dL (6.0-8.3); Sodium 133 mmol/L (136-145)
[2023-12-15] MEDS ORDERED: Iopamidol-370 76% 500 ML MDV (1 ML CHARGE) ONE (15:49)
[2023-12-15] MEDS: Morphine 2 MG/ML VIAL SLOW IVP SCH (20:09)
[2023-12-15] MEDS: hydrOXYzine 25 MG TAB PO SCH (23:13)
[2023-12-16 05:33] LABS: Chlam.trachomatis by PCR,Urine Not Detected (NotDetected); GC N.gonorrhoeae PCR,UrineVOID Not Detected (NotDetected)
[2023-12-16 06:43] LABS: #Basophils Less than 0.03 10x3/uL (0.0-0.2); %Basophils 0.3 % (0.0-1.0); %Eosinophils 4.9 % (0.0-10.0); %Lymphocytes 17.3 % (21.0-51.0); %Monocytes 16.2 % (0.0-10.0); %Neutrophils 60.7 % (42.0-75.0); Hematocrit 26.7 % (42.0-52.0); Hemoglobin 9.9 g/dL (14.0-18.0); Mean Corpuscular HGB CONC 37.1 g/dL (32.0-36.0); Mean Platelet Volume 10.2 fL (7.4-10.4); Platelet Count 53 10x3/uL (130-400); RBC Distribution Width 18.6 % (11.5-14.5)
[2023-12-16 06:55] LABS: INR-International Normal Ratio 2.3; Prothrombin Time 25.6 sec (12.0-14.7)
[2023-12-16 06:59] LABS: ALT (SGPT) 54 U/L (8-55); AST (SGOT) 85 U/L (5-34); Alkaline Phosphatase 129 U/L (40-110); Anion Gap 10 mmol/L (10-20); BUN (Urea Nitrogen) 16 mg/dL (8.4-25.7); Bilirubin, Total 6.8 mg/dL (0.2-1.2); Calc. Creatinine Clearance 156 mL/min (70-130); Calcium 7.5 mg/dL (7.8-10.44); Carbon Dioxide 20 mmol/L (22-29); Chloride 106 mmol/L (98-107); Estimated GFR 107; Globulin 3.1 g/dL (2.4-3.5); Glucose 109 mg/dL (70-105); Magnesium 1.8 mg/dL (1.6-2.6); Potassium 4.2 mmol/L (3.5-5.1); Protein, Total 5.1 g/dL (6.0-8.3); Sodium 132 mmol/L (136-145)
[2023-12-16] MEDS: traMADol HCl 50 MG TAB PO SCH (22:38)
[2023-12-16] MEDS: hydrOXYzine 25 MG TAB PO SCH (22:40)
[2023-12-17] MEDS ORDERED: Sodium Bicarbonate 2.5 MEQ/5 ML SDV ONE (07:09)
[2023-12-17] MEDS ORDERED: Lidocaine 1% PF 5 ML VIAL ONE (07:10)
[2023-12-17 07:17] LABS: Hematocrit 26.9 % (42.0-52.0); Mean Corpuscular HGB CONC 37.2 g/dL (32.0-36.0); Mean Corpuscular Hemoglobin 32.2 pg (27.0-31.0); Mean Corpuscular Volume 86.5 fL (78.0-98.0); Mean Platelet Volume 10.6 fL (7.4-10.4); Platelet Count 47 10x3/uL (130-400); RBC Distribution Width 19.1 % (11.5-14.5); Red Blood Cell (RBC) Count 3.11 mill/uL (4.70-6.10)
[2023-12-17 07:18] LABS: #Basophils Less than 0.03 10x3/uL (0.0-0.2); %Basophils 0.3 % (0.0-1.0); %Eosinophils 4.7 % (0.0-10.0); %Lymphocytes 15.1 % (21.0-51.0); %Monocytes 16.9 % (0.0-10.0); %Neutrophils 62.4 % (42.0-75.0); INR-International Normal Ratio 2.3; PTT 52.4 sec (22.9-36.1); Prothrombin Time 25.1 sec (12.0-14.7)
[2023-12-17 07:38] LABS: ALT (SGPT) 51 U/L (8-55); AST (SGOT) 82 U/L (5-34); Alkaline Phosphatase 143 U/L (40-110); Anion Gap 10 mmol/L (10-20); BUN (Urea Nitrogen) 17 mg/dL (8.4-25.7); Bilirubin, Total 6.8 mg/dL (0.2-1.2); Calc. Creatinine Clearance 178 mL/min (70-130); Calcium 7.5 mg/dL (7.8-10.44); Carbon Dioxide 19 mmol/L (22-29); Chloride 105 mmol/L (98-107); Estimated GFR 111; Globulin 3.1 g/dL (2.4-3.5); Glucose 73 mg/dL (70-105); Magnesium 1.8 mg/dL (1.6-2.6); Potassium 4.5 mmol/L (3.5-5.1); Protein, Total 5.1 g/dL (6.0-8.3); Sodium 129 mmol/L (136-145)
[2023-12-17] MEDS ORDERED: PROPOFOL 20 ML ONE (07:59)
[2023-12-17] MEDS: GoLYTELY 4,000 ml Bottle PO SCH (18:44)
[2023-12-17] MEDS: traMADol HCl 50 MG TAB PO SCH (23:28)
[2023-12-18 06:20] LABS: Hematocrit 26.6 % (42.0-52.0); Hemoglobin 9.8 g/dL (14.0-18.0); Mean Corpuscular HGB CONC 36.8 g/dL (32.0-36.0); Mean Corpuscular Hemoglobin 32.8 pg (27.0-31.0); Mean Platelet Volume 11.9 fL (7.4-10.4); Platelet Count 47 10x3/uL (130-400); RBC Distribution Width 18.5 % (11.5-14.5); Red Blood Cell (RBC) Count 2.99 mill/uL (4.70-6.10)
[2023-12-18 06:29] LABS: INR-International Normal Ratio 2.2; Prothrombin Time 24.2 sec (12.0-14.7)
[2023-12-18 06:30] LABS: PTT 54.2 sec (22.9-36.1)
[2023-12-18 06:38] LABS: ALT (SGPT) 52 U/L (8-55); AST (SGOT) 82 U/L (5-34); Alkaline Phosphatase 113 U/L (40-110); Anion Gap 8 mmol/L (10-20); BUN (Urea Nitrogen) 17 mg/dL (8.4-25.7); Calc. Creatinine Clearance 184 mL/min (70-130); Calcium 7.7 mg/dL (7.8-10.44); Carbon Dioxide 21 mmol/L (22-29); Chloride 102 mmol/L (98-107); Estimated GFR 112; Globulin 3.1 g/dL (2.4-3.5); Glucose 83 mg/dL (70-105); Magnesium 1.7 mg/dL (1.6-2.6); Potassium 4.3 mmol/L (3.5-5.1); Protein, Total 5.1 g/dL (6.0-8.3); Sodium 127 mmol/L (136-145)
[2023-12-18 06:53] LABS: Anisocytosis MODERATE=16-30 cells HPF (0-5); Eosinophils 2 % (0-10); Hypochromia SLIGHT = 6-15 cells HPF (0-5); Large Platelets 3.1 % (0-5); Lymphocytes 18 % (21-51); Macrocytosis SLIGHT = 6-15 cells HPF (0-5); Monocytes 14 % (0-10); Neutrophil 65 % (42-75); Platelet Adequacy Comment Platelets Decreased; Poikilocytosis SLIGHT = 6-15 cells HPF (0-5); Polychromasia SLIGHT = 2-3 cells HPF (0-2); Smudge Cells 23.5 %; Target Cells SLIGHT = 2-5 cells HPF (0-1)
[2023-12-18] MEDS: Spironolactone 100 MG TAB PO SCH (09:07)
[2023-12-18] MEDS: Albumin 25% 25 GM (100 mL) BOT IVPB SCH (10:20)
[2023-12-18] MEDS: Phytonadione 10 MG/ML AMP SC SCH (16:23)
[2023-12-18] MEDS ORDERED: Tranexamic Acid 1,000 MG/10 ML VIAL IVP SCH (19:15)
[2023-12-18] MEDS: Morphine 2 MG/ML VIAL SLOW IVP SCH (19:36)
[2023-12-18] MEDS: Tranexamic Acid 1,000 MG in Sodium Chloride 0.9% 100 ML IVPB SCH (19:37)
[2023-12-19 05:26] LABS: Hematocrit 25.4 % (42.0-52.0); Hemoglobin 9.6 g/dL (14.0-18.0); Mean Corpuscular HGB CONC 37.8 g/dL (32.0-36.0); Mean Corpuscular Hemoglobin 33.2 pg (27.0-31.0); Mean Corpuscular Volume 87.9 fL (78.0-98.0); Mean Platelet Volume 10.8 fL (7.4-10.4); Platelet Count 55 10x3/uL (130-400); Red Blood Cell (RBC) Count 2.89 mill/uL (4.70-6.10)
[2023-12-19 05:34] LABS: INR-International Normal Ratio 2.1; Prothrombin Time 23.8 sec (12.0-14.7)
[2023-12-19 05:50] LABS: ALT (SGPT) 46 U/L (8-55); AST (SGOT) 75 U/L (5-34); Albumin 2.3 g/dL (3.5-5.0); Alkaline Phosphatase 81 U/L (40-110); Anion Gap 11 mmol/L (10-20); BUN (Urea Nitrogen) 13 mg/dL (8.4-25.7); Calc. Creatinine Clearance 189 mL/min (70-130); Carbon Dioxide 21 mmol/L (22-29); Chloride 100 mmol/L (98-107); Estimated GFR 113; Glucose 68 mg/dL (70-105); Iron 118 ug/dL (65-175); Iron Binding Capacity, Total 189 mcg/dL (261-462); Magnesium 1.6 mg/dL (1.6-2.6); Potassium 4.2 mmol/L (3.5-5.1); Protein, Total 5.3 g/dL (6.0-8.3); Sodium 128 mmol/L (136-145)
[2023-12-19 07:52] LABS: Band 4 % (5-11); Lymphocytes 20 % (21-51); Neutrophil 52 % (42-75)
[2023-12-19 07:53] LABS: Eosinophils 8 % (0-10); Monocytes 16 % (0-10)
[2023-12-19 07:56] LABS: Ovalocytes SLIGHT = 2-5 cells (100X) (0-1/hpf); Platelet Adequacy Comment Appears Decreased; Target Cells SLIGHT = 2-5 cells (100X) (0-1/hpf)
[2023-12-19] MEDS ORDERED: Ketamine In 0.9 % NaCl 50 MG/5 ML SYRINGE ONE (13:12)
[2023-12-19] MEDS ORDERED: PROPOFOL 20 ML ONE (13:12)
[2023-12-19] MEDS ORDERED: PHENYLEPHRINE-NS 100 MCG/ML 10 ML SYRINGE ONE (13:16)
[2023-12-19] MEDS ORDERED: NOREPINEPHRINE 8 MG/250 ML-D5W 250 ML ONE (13:18)
[2023-12-19] MEDS ORDERED: Magnesium Sulfate 4 GM in Sodium Chloride 0.9% 250 ML 250 ML IVPB SCH (14:30)
[2023-12-19] MEDS: traMADol HCl 50 MG TAB PO PRN (15:34)
[2023-12-19] MEDS: Spironolactone 100 MG TAB PO SCH (15:34)
[2023-12-19] MEDS: Albumin 25% 25 GM (100 mL) BOT IVPB SCH (16:51)
[2023-12-19] MEDS: Magnesium Sulfate In Water 4 GM in Premix 1 BAG IVPB SCH (19:18)
[2023-12-20 06:32] LABS: INR-International Normal Ratio 2.1; PTT 53.6 sec (22.9-36.1); Prothrombin Time 23.9 sec (12.0-14.7)
[2023-12-20 06:33] LABS: ALT (SGPT) 43 U/L (8-55); AST (SGOT) 68 U/L (5-34); Albumin 2.4 g/dL (3.5-5.0); Alkaline Phosphatase 71 U/L (40-110); Anion Gap 10 mmol/L (10-20); BUN (Urea Nitrogen) 11 mg/dL (8.4-25.7); Bilirubin, Total 8.4 mg/dL (0.2-1.2); Calc. Creatinine Clearance 179 mL/min (70-130); Carbon Dioxide 22 mmol/L (22-29); Chloride 101 mmol/L (98-107); Estimated GFR 111; Globulin 2.6 g/dL (2.4-3.5); Glucose 90 mg/dL (70-105); Potassium 4.5 mmol/L (3.5-5.1); Sodium 128 mmol/L (136-145)
[2023-12-20] MEDS ORDERED: Morphine 2 MG/ML VIAL SLOW IVP PRN (09:59)
[2023-12-20 10:02] LABS: Band 8 % (5-11); Eosinophils 3 % (0-10); Lymphocytes 9 % (21-51); Metamyelocyte 2 % (0-0); Monocytes 8 % (0-10); Neutrophil 56 % (42-75); Platelet Adequacy Comment Platelets Decreased; Polychromasia MODERATE = 3-4 cells HPF (0-2); Reactive Lymphocytes 12 % (0-10); Target Cells SLIGHT = 2-5 cells HPF (0-1)
[2023-12-20 10:25] LABS: Hematocrit 25.6 % (42.0-52.0); Hemoglobin 9.5 g/dL (14.0-18.0); Mean Corpuscular HGB CONC 37.1 g/dL (32.0-36.0); Mean Corpuscular Hemoglobin 32.6 pg (27.0-31.0); Mean Platelet Volume 10.8 fL (7.4-10.4); Platelet Count 54 10x3/uL (130-400); RBC Distribution Width 18.3 % (11.5-14.5); Red Blood Cell (RBC) Count 2.91 mill/uL (4.70-6.10)
[2023-12-20] MEDS: Morphine 2 MG/ML VIAL SLOW IVP PRN (11:23)
[2023-12-20] MEDS: Albumin 25% 25 GM (100 mL) BOT IVPB SCH (14:10)
[2023-12-20] MEDS: Lorazepam 2 MG/ML VIAL SLOW IVP SCH (21:48)
[2023-12-21 06:20] LABS: #Basophils Less than 0.03 10x3/uL (0.0-0.2); %Basophils 0.5 % (0.0-1.0); %Lymphocytes 19.1 % (21.0-51.0); %Monocytes 18.4 % (0.0-10.0); %Neutrophils 58.8 % (42.0-75.0); Hematocrit 23.9 % (42.0-52.0); Hemoglobin 8.7 g/dL (14.0-18.0); Mean Corpuscular HGB CONC 36.4 g/dL (32.0-36.0); Mean Corpuscular Hemoglobin 33.1 pg (27.0-31.0); Mean Corpuscular Volume 90.9 fL (78.0-98.0); Mean Platelet Volume 11.2 fL (7.4-10.4); Platelet Count 42 10x3/uL (130-400); RBC Distribution Width 18.2 % (11.5-14.5); Red Blood Cell (RBC) Count 2.63 mill/uL (4.70-6.10)
[2023-12-21 06:27] LABS: INR-International Normal Ratio 2.5; Prothrombin Time 27.5 sec (12.0-14.7)
[2023-12-21 06:33] LABS: ALT (SGPT) 35 U/L (8-55); AST (SGOT) 60 U/L (5-34); Albumin 2.9 g/dL (3.5-5.0); Alkaline Phosphatase 98 U/L (40-110); Anion Gap 10 mmol/L (10-20); BUN (Urea Nitrogen) 12 mg/dL (8.4-25.7); Bilirubin, Total 7.3 mg/dL (0.2-1.2); Calc. Creatinine Clearance 163 mL/min (70-130); Calcium 8.3 mg/dL (7.8-10.44); Carbon Dioxide 25 mmol/L (22-29); Chloride 105 mmol/L (98-107); Estimated GFR 108; Globulin 2.3 g/dL (2.4-3.5); Glucose 77 mg/dL (70-105); Magnesium 1.7 mg/dL (1.6-2.6); Potassium 4.5 mmol/L (3.5-5.1); Protein, Total 5.2 g/dL (6.0-8.3); Sodium 135 mmol/L (136-145)
[2023-12-21] MEDS ORDERED: Electrolyte Replacement Protocol 1 EACH FS SCH (08:30)
[2023-12-21] MEDS: Magnesium 2 GM/50 ML(in water) 2 GM in Premix 1 BAG IVPB SCH (09:24)
[2023-12-21] MEDS: ALPRAZolam 0.25 MG TAB PO PRN (23:26)
[2023-12-22] MEDS: Albumin 25% 25 GM (100 mL) BOT IVPB SCH (04:25)
[2023-12-22] MEDS: Midodrine HCl 5 MG TAB PO SCH (04:25)
[2023-12-22 04:59] LABS: INR-International Normal Ratio 2.6; Prothrombin Time 27.8 sec (12.0-14.7)
[2023-12-22 05:00] LABS: Hematocrit 23.7 % (42.0-52.0); Hemoglobin 8.5 g/dL (14.0-18.0); Mean Corpuscular HGB CONC 35.9 g/dL (32.0-36.0); Mean Corpuscular Hemoglobin 32.8 pg (27.0-31.0); Mean Corpuscular Volume 91.5 fL (78.0-98.0); Mean Platelet Volume 10.5 fL (7.4-10.4); Platelet Count 40 10x3/uL (130-400); RBC Distribution Width 18.4 % (11.5-14.5); Red Blood Cell (RBC) Count 2.59 mill/uL (4.70-6.10)
[2023-12-22 05:14] LABS: ALT (SGPT) 33 U/L (8-55); AST (SGOT) 58 U/L (5-34); Albumin 2.7 g/dL (3.5-5.0); Alkaline Phosphatase 80 U/L (40-110); Anion Gap 11 mmol/L (10-20); BUN (Urea Nitrogen) 13 mg/dL (8.4-25.7); Calc. Creatinine Clearance 172 mL/min (70-130); Calcium 8.4 mg/dL (7.8-10.44); Carbon Dioxide 24 mmol/L (22-29); Chloride 107 mmol/L (98-107); Estimated GFR 110; Globulin 2.2 g/dL (2.4-3.5); Glucose 85 mg/dL (70-105); Magnesium 1.6 mg/dL (1.6-2.6); Potassium 4.5 mmol/L (3.5-5.1); Protein, Total 4.9 g/dL (6.0-8.3); Sodium 137 mmol/L (136-145)
[2023-12-22] MEDS: Magnesium 2 GM/50 ML(in water) 2 GM in Premix 1 BAG IVPB SCH ×2 (06:09→08:43)
[2023-12-22] MEDS: Sodium Chloride 0.9% 1,000 ML IV SCH (08:44)
[2023-12-22 09:18] LABS: Band 3 % (5-11); Eosinophils 3 % (0-10); Lymphocytes 20 % (21-51); Monocytes 10 % (0-10); Neutrophil 62 % (42-75); Platelet Adequacy Comment Significant Decrease; Schistocytes SLIGHT = 2-5 cells HPF (0-1); Target Cells SLIGHT = 2-5 cells HPF (0-1)
[2023-12-23 05:32] LABS: #Basophils Less than 0.03 10x3/uL (0.0-0.2); %Basophils 0.5 % (0.0-1.0); %Eosinophils 3.6 % (0.0-10.0); %Lymphocytes 21.1 % (21.0-51.0); %Monocytes 18.3 % (0.0-10.0); %Neutrophils 56.3 % (42.0-75.0); Hemoglobin 8.7 g/dL (14.0-18.0); Mean Corpuscular HGB CONC 36.3 g/dL (32.0-36.0); Mean Corpuscular Volume 90.9 fL (78.0-98.0); Mean Platelet Volume 10.8 fL (7.4-10.4); Platelet Count 39 10x3/uL (130-400); RBC Distribution Width 18.3 % (11.5-14.5); Red Blood Cell (RBC) Count 2.64 mill/uL (4.70-6.10)
[2023-12-23 05:34] LABS: INR-International Normal Ratio 2.7; Prothrombin Time 28.4 sec (12.0-14.7)
[2023-12-23 05:41] LABS: ALT (SGPT) 29 U/L (8-55); AST (SGOT) 55 U/L (5-34); Albumin 2.7 g/dL (3.5-5.0); Alkaline Phosphatase 78 U/L (40-110); Anion Gap 9 mmol/L (10-20); BUN (Urea Nitrogen) 11 mg/dL (8.4-25.7); Bilirubin, Total 6.9 mg/dL (0.2-1.2); Calc. Creatinine Clearance 170 mL/min (70-130); Calcium 8.4 mg/dL (7.8-10.44); Carbon Dioxide 24 mmol/L (22-29); Chloride 109 mmol/L (98-107); Estimated GFR 109; Globulin 2.2 g/dL (2.4-3.5); Glucose 91 mg/dL (70-105); Magnesium 1.7 mg/dL (1.6-2.6); Potassium 4.2 mmol/L (3.5-5.1); Protein, Total 4.9 g/dL (6.0-8.3); Sodium 138 mmol/L (136-145)
[2023-12-23] MEDS: Magnesium 2 GM/50 ML(in water) 2 GM in Premix 1 BAG IVPB SCH (08:08)
[2023-12-24 03:52] LABS: #Basophils Less than 0.03 10x3/uL (0.0-0.2); %Basophils 0.5 % (0.0-1.0); %Eosinophils 4.9 % (0.0-10.0); %Lymphocytes 21.9 % (21.0-51.0); %Monocytes 14.7 % (0.0-10.0); %Neutrophils 57.7 % (42.0-75.0); Hemoglobin 8.6 g/dL (14.0-18.0); Mean Corpuscular HGB CONC 35.8 g/dL (32.0-36.0); Mean Corpuscular Hemoglobin 32.7 pg (27.0-31.0); Mean Corpuscular Volume 91.3 fL (78.0-98.0); Mean Platelet Volume 10.1 fL (7.4-10.4); Platelet Count 43 10x3/uL (130-400); RBC Distribution Width 18.4 % (11.5-14.5); Red Blood Cell (RBC) Count 2.63 mill/uL (4.70-6.10)
[2023-12-24 04:00] LABS: INR-International Normal Ratio 2.5; Prothrombin Time 27.2 sec (12.0-14.7)
[2023-12-24 04:05] LABS: ALT (SGPT) 32 U/L (8-55); AST (SGOT) 55 U/L (5-34); Albumin 2.6 g/dL (3.5-5.0); Alkaline Phosphatase 94 U/L (40-110); Anion Gap 11 mmol/L (10-20); BUN (Urea Nitrogen) 13 mg/dL (8.4-25.7); Bilirubin, Total 5.9 mg/dL (0.2-1.2); Calc. Creatinine Clearance 187 mL/min (70-130); Calcium 8.2 mg/dL (7.8-10.44); Carbon Dioxide 22 mmol/L (22-29); Chloride 109 mmol/L (98-107); Estimated GFR 113; Globulin 2.4 g/dL (2.4-3.5); Glucose 103 mg/dL (70-105); Potassium 4.2 mmol/L (3.5-5.1); Sodium 138 mmol/L (136-145)
[2023-12-24] MEDS: Nadolol 40 MG TAB PO SCH (09:03)
[2023-12-24] MEDS: Albumin 25% 25 GM (100 mL) BOT IVPB SCH (12:53)
[2023-12-24] MEDS ORDERED: Lidocaine 1% PF 5 ML VIAL ONE (15:24)
[2023-12-25 03:57] LABS: #Basophils Less than 0.03 10x3/uL (0.0-0.2); %Basophils 0.3 % (0.0-1.0); %Eosinophils 4.9 % (0.0-10.0); %Lymphocytes 22.4 % (21.0-51.0); %Monocytes 15.7 % (0.0-10.0); %Neutrophils 56.4 % (42.0-75.0); Hematocrit 23.3 % (42.0-52.0); Hemoglobin 8.5 g/dL (14.0-18.0); Mean Corpuscular HGB CONC 36.5 g/dL (32.0-36.0); Mean Corpuscular Hemoglobin 32.4 pg (27.0-31.0); Mean Corpuscular Volume 88.9 fL (78.0-98.0); Platelet Count 37 10x3/uL (130-400); RBC Distribution Width 18.4 % (11.5-14.5); Red Blood Cell (RBC) Count 2.62 mill/uL (4.70-6.10)
[2023-12-25 04:03] LABS: INR-International Normal Ratio 2.7; Prothrombin Time 29.1 sec (12.0-14.7)
[2023-12-25 04:14] LABS: ALT (SGPT) 29 U/L (8-55); AST (SGOT) 46 U/L (5-34); Albumin 3.1 g/dL (3.5-5.0); Alkaline Phosphatase 71 U/L (40-110); Anion Gap 10 mmol/L (10-20); BUN (Urea Nitrogen) 12 mg/dL (8.4-25.7); Bilirubin, Total 6.3 mg/dL (0.2-1.2); Calc. Creatinine Clearance 179 mL/min (70-130); Calcium 8.4 mg/dL (7.8-10.44); Carbon Dioxide 21 mmol/L (22-29); Chloride 112 mmol/L (98-107); Estimated GFR 111; Glucose 80 mg/dL (70-105); Potassium 4.1 mmol/L (3.5-5.1); Protein, Total 5.1 g/dL (6.0-8.3); Sodium 139 mmol/L (136-145)
[2023-12-25] MEDS: Midodrine HCl 5 MG TAB PO SCH ×2 (08:56→15:09)
[2023-12-25] MEDS: Lorazepam 2 MG/ML VIAL SLOW IVP SCH (17:17)
[2023-12-25 17:27] LABS: #Basophils 0.03 10x3/uL (0.0-0.2); %Basophils 0.5 % (0.0-1.0); %Eosinophils 5.1 % (0.0-10.0); %Monocytes 12.9 % (0.0-10.0); %Neutrophils 65.1 % (42.0-75.0); Hematocrit 25.2 % (42.0-52.0); Hemoglobin 9.2 g/dL (14.0-18.0); Mean Corpuscular HGB CONC 36.5 g/dL (32.0-36.0); Mean Corpuscular Hemoglobin 33.5 pg (27.0-31.0); Mean Corpuscular Volume 91.6 fL (78.0-98.0); Mean Platelet Volume 10.3 fL (7.4-10.4); Platelet Count 50 10x3/uL (130-400); RBC Distribution Width 18.3 % (11.5-14.5); Red Blood Cell (RBC) Count 2.75 mill/uL (4.70-6.10)
[2023-12-26 04:17] LABS: #Basophils Less than 0.03 10x3/uL (0.0-0.2); %Basophils 0.5 % (0.0-1.0); %Eosinophils 5.8 % (0.0-10.0); %Lymphocytes 19.4 % (21.0-51.0); %Monocytes 12.9 % (0.0-10.0); %Neutrophils 60.9 % (42.0-75.0); Hematocrit 23.9 % (42.0-52.0); Hemoglobin 8.6 g/dL (14.0-18.0); Mean Corpuscular Hemoglobin 32.8 pg (27.0-31.0); Mean Corpuscular Volume 91.2 fL (78.0-98.0); Mean Platelet Volume 11.2 fL (7.4-10.4); Platelet Count 44 10x3/uL (130-400); RBC Distribution Width 18.3 % (11.5-14.5); Red Blood Cell (RBC) Count 2.62 mill/uL (4.70-6.10)
[2023-12-26 04:23] LABS: Anion Gap 11 mmol/L (10-20); BUN (Urea Nitrogen) 11 mg/dL (8.4-25.7); Calc. Creatinine Clearance 199 mL/min (70-130); Calcium 8.2 mg/dL (7.8-10.44); Carbon Dioxide 20 mmol/L (22-29); Chloride 111 mmol/L (98-107); Estimated GFR 115; Glucose 81 mg/dL (70-105); Potassium 4.2 mmol/L (3.5-5.1); Sodium 138 mmol/L (136-145)
[2023-12-26] MEDS: Midodrine HCl 5 MG TAB PO SCH (10:06)
[2023-12-27 04:12] LABS: #Basophils 0.03 10x3/uL (0.0-0.2); %Basophils 0.7 % (0.0-1.0); %Eosinophils 4.6 % (0.0-10.0); %Lymphocytes 19.2 % (21.0-51.0); %Monocytes 15.9 % (0.0-10.0); %Neutrophils 59.4 % (42.0-75.0); Hemoglobin 8.7 g/dL (14.0-18.0); Mean Corpuscular HGB CONC 36.3 g/dL (32.0-36.0); Mean Corpuscular Hemoglobin 33.2 pg (27.0-31.0); Mean Corpuscular Volume 91.6 fL (78.0-98.0); Mean Platelet Volume 10.6 fL (7.4-10.4); Platelet Count 46 10x3/uL (130-400); RBC Distribution Width 18.4 % (11.5-14.5); Red Blood Cell (RBC) Count 2.62 mill/uL (4.70-6.10)
[2023-12-27 04:32] LABS: ALT (SGPT) 21 U/L (8-55); AST (SGOT) 43 U/L (5-34); Albumin 2.7 g/dL (3.5-5.0); Alkaline Phosphatase 71 U/L (40-110); Anion Gap 9 mmol/L (10-20); BUN (Urea Nitrogen) 12 mg/dL (8.4-25.7); Calc. Creatinine Clearance 193 mL/min (70-130); Carbon Dioxide 20 mmol/L (22-29); Chloride 112 mmol/L (98-107); Estimated GFR 114; Glucose 86 mg/dL (70-105); Protein, Total 4.7 g/dL (6.0-8.3); Sodium 137 mmol/L (136-145)
[2023-12-27] MEDS: Furosemide 40 MG TAB PO SCH (10:27)
[2023-12-27 11:37] VITALS: BMI 35.5
[2023-12-27] MEDS: ALPRAZolam 0.25 MG TAB PO SCH (23:19)
[2023-12-28 04:10] LABS: #Basophils Less than 0.03 10x3/uL (0.0-0.2); %Basophils 0.5 % (0.0-1.0); %Eosinophils 4.3 % (0.0-10.0); %Lymphocytes 21.5 % (21.0-51.0); %Monocytes 16.5 % (0.0-10.0); Hematocrit 23.5 % (42.0-52.0); Hemoglobin 8.5 g/dL (14.0-18.0); Mean Corpuscular HGB CONC 36.2 g/dL (32.0-36.0); Mean Corpuscular Hemoglobin 32.8 pg (27.0-31.0); Mean Corpuscular Volume 90.7 fL (78.0-98.0); Mean Platelet Volume 9.7 fL (7.4-10.4); Platelet Count 49 10x3/uL (130-400); RBC Distribution Width 18.2 % (11.5-14.5); Red Blood Cell (RBC) Count 2.59 mill/uL (4.70-6.10)
[2023-12-28 04:26] LABS: ALT (SGPT) 21 U/L (8-55); AST (SGOT) 44 U/L (5-34); Albumin 2.7 g/dL (3.5-5.0); Alkaline Phosphatase 84 U/L (40-110); Anion Gap 11 mmol/L (10-20); BUN (Urea Nitrogen) 12 mg/dL (8.4-25.7); Bilirubin, Total 6.3 mg/dL (0.2-1.2); Calc. Creatinine Clearance 177 mL/min (70-130); Carbon Dioxide 22 mmol/L (22-29); Chloride 111 mmol/L (98-107); Estimated GFR 111; Globulin 2.1 g/dL (2.4-3.5); Glucose 92 mg/dL (70-105); Potassium 3.8 mmol/L (3.5-5.1); Protein, Total 4.8 g/dL (6.0-8.3); Sodium 140 mmol/L (136-145)
[2023-12-28] MEDS ORDERED: Furosemide 40 MG TAB PO SCH (10:50)
[2023-12-28] MEDS: Furosemide 40 MG TAB PO SCH (11:56)
[2023-12-28] MEDS: GoLYTELY 4,000 ml Bottle PO SCH (13:31)
[2023-12-28] MEDS: Midodrine HCl 5 MG TAB PO SCH (13:35)
[2023-12-28] MEDS: Phytonadione 5 MG TAB PO SCH (14:39)
[2023-12-29] MEDS: ALPRAZolam 0.25 MG TAB PO SCH (01:19)
[2023-12-29 04:22] LABS: #Basophils Less than 0.03 10x3/uL (0.0-0.2); %Basophils 0.5 % (0.0-1.0); %Eosinophils 5.3 % (0.0-10.0); %Lymphocytes 23.5 % (21.0-51.0); %Monocytes 20.9 % (0.0-10.0); %Neutrophils 49.6 % (42.0-75.0); Hemoglobin 8.8 g/dL (14.0-18.0); Mean Corpuscular HGB CONC 36.7 g/dL (32.0-36.0); Mean Corpuscular Hemoglobin 32.2 pg (27.0-31.0); Mean Corpuscular Volume 87.9 fL (78.0-98.0); Mean Platelet Volume 10.6 fL (7.4-10.4); Platelet Count 50 10x3/uL (130-400); RBC Distribution Width 18.1 % (11.5-14.5); Red Blood Cell (RBC) Count 2.73 mill/uL (4.70-6.10)
[2023-12-29 04:37] LABS: ALT (SGPT) 21 U/L (8-55); AST (SGOT) 45 U/L (5-34); Albumin 2.7 g/dL (3.5-5.0); Alkaline Phosphatase 66 U/L (40-110); Anion Gap 12 mmol/L (10-20); BUN (Urea Nitrogen) 10 mg/dL (8.4-25.7); Bilirubin, Total 6.9 mg/dL (0.2-1.2); Calc. Creatinine Clearance 212 mL/min (70-130); Calcium 7.9 mg/dL (7.8-10.44); Carbon Dioxide 22 mmol/L (22-29); Chloride 109 mmol/L (98-107); Estimated GFR 117; Globulin 2.1 g/dL (2.4-3.5); Glucose 80 mg/dL (70-105); Potassium 3.7 mmol/L (3.5-5.1); Protein, Total 4.8 g/dL (6.0-8.3); Sodium 139 mmol/L (136-145)
[2023-12-29] MEDS ORDERED: PROPOFOL 60 ML ONE (09:58)
[2023-12-29] MEDS ORDERED: Lidocaine 1% PF 5 ML VIAL ONE (09:58)
[2023-12-29] MEDS: Furosemide 40 MG TAB PO SCH (11:51)
[2023-12-30] MEDS ORDERED: ALPRAZolam 0.25 MG TAB PO PRN (00:57)
[2023-12-30 04:09] LABS: #Basophils Less than 0.03 10x3/uL (0.0-0.2); %Basophils 0.2 % (0.0-1.0); %Eosinophils 3.2 % (0.0-10.0); %Lymphocytes 21.6 % (21.0-51.0); %Neutrophils 61.4 % (42.0-75.0); Hematocrit 24.8 % (42.0-52.0); Mean Corpuscular HGB CONC 36.3 g/dL (32.0-36.0); Mean Corpuscular Hemoglobin 33.1 pg (27.0-31.0); Mean Corpuscular Volume 91.2 fL (78.0-98.0); Mean Platelet Volume 10.1 fL (7.4-10.4); Platelet Count 56 10x3/uL (130-400); RBC Distribution Width 18.4 % (11.5-14.5); Red Blood Cell (RBC) Count 2.72 mill/uL (4.70-6.10)
[2023-12-30 04:22] LABS: ALT (SGPT) 22 U/L (8-55); AST (SGOT) 47 U/L (5-34); Albumin 2.8 g/dL (3.5-5.0); Alkaline Phosphatase 74 U/L (40-110); Anion Gap 11 mmol/L (10-20); BUN (Urea Nitrogen) 13 mg/dL (8.4-25.7); Bilirubin, Total 7.8 mg/dL (0.2-1.2); Calc. Creatinine Clearance 179 mL/min (70-130); Calcium 8.3 mg/dL (7.8-10.44); Carbon Dioxide 21 mmol/L (22-29); Chloride 112 mmol/L (98-107); Estimated GFR 111; Globulin 2.2 g/dL (2.4-3.5); Glucose 98 mg/dL (70-105); Potassium 4.1 mmol/L (3.5-5.1); Sodium 140 mmol/L (136-145)
[2023-12-30 09:16] VITALS: BP 102/53; TEMP 98.7
== END 2023-12-30 12:13 | disposition home or self-care (01) | DRG 433 ==
LOC: ERS 13:11 → T4-A 18:11 → OBSVTOIN 18:11 → IMCU/EMU 12-19 14:35 → 2SW 12-21 10:15
PROVIDERS: ADMIT Family Medicine; ATTEND Internal Medicine
PROC: 30233J1 Transfusion of Nonautologous Serum Albumin into Peripheral Vein, Percutaneous Approach (ICD-10-PCS; 2023-12-11)
PROC: 0W9G3ZZ Drainage of Peritoneal Cavity, Percutaneous Approach (ICD-10-PCS; principal; 2023-12-14)
PROC: 02HV33Z Insertion of Infusion Device into Superior Vena Cava, Percutaneous Approach (ICD-10-PCS; 2023-12-17)
PROC: B5181ZA Fluoroscopy of Superior Vena Cava using Low Osmolar Contrast, Guidance (ICD-10-PCS; 2023-12-17)
PROC: 3E04329 Introduction of Other Anti-infective into Central Vein, Percutaneous Approach (ICD-10-PCS; 2023-12-17)
PROC: B548ZZA Ultrasonography of Superior Vena Cava, Guidance (ICD-10-PCS; 2023-12-17)
PROC: 30233K1 Transfusion of Nonautologous Frozen Plasma into Peripheral Vein, Percutaneous Approach (ICD-10-PCS; 2023-12-18)
PROC: 6A550Z2 Pheresis of Platelets, Single (ICD-10-PCS; 2023-12-18)
PROC: 3E033XZ Introduction of Vasopressor into Peripheral Vein, Percutaneous Approach (ICD-10-PCS; 2023-12-19)
PROC: 0W9G3ZZ Drainage of Peritoneal Cavity, Percutaneous Approach (ICD-10-PCS; 2023-12-24)
PROC: 0DJ08ZZ Inspection of Upper Intestinal Tract, Via Natural or Artificial Opening Endoscopic (ICD-10-PCS; 2023-12-29)
PROC: 0DJD8ZZ Inspection of Lower Intestinal Tract, Via Natural or Artificial Opening Endoscopic (ICD-10-PCS; 2023-12-29)
DX: K70.31 Alcoholic cirrhosis of liver with ascites (principal); D68.9 Coagulation defect, unspecified; E87.20 Acidosis, unspecified; K76.6 Portal hypertension; I47.20 Ventricular tachycardia, unspecified; R17 Unspecified jaundice; R78.81 Bacteremia; I85.00 Esophageal varices without bleeding; E87.1 Hypo-osmolality and hyponatremia; K76.82 Hepatic encephalopathy; K57.30 Diverticulosis of large intestine without perforation or abscess without bleeding; K64.8 Other hemorrhoids; K31.89 Other diseases of stomach and duodenum; N50.89 Other specified disorders of the male genital organs; E83.42 Hypomagnesemia; K70.11 Alcoholic hepatitis with ascites; I95.9 Hypotension, unspecified; G47.30 Sleep apnea, unspecified; E66.9 Obesity, unspecified; R74.01 Elevation of levels of liver transaminase levels; D63.1 Anemia in chronic kidney disease; B95.4 Other streptococcus as the cause of diseases classified elsewhere; D69.6 Thrombocytopenia, unspecified; Z53.9 Procedure and treatment not carried out, unspecified reason; Z79.2 Long term (current) use of antibiotics; Z79.899 Other long term (current) drug therapy; Z98.890 Other specified postprocedural states; Z68.35 Body mass index [BMI] 35.0-35.9, adult; Z71.3 Dietary counseling and surveillance; Z91.148 Patient's other noncompliance with medication regimen for other reason
CPT/HCPCS: 36415; 36416; 36430; 36569; 49083; 70450; 71045; 74177; 76705; 76870; 76937; 77001; 80048; 80053; 80307; 82140; 82728; 82805; 82945; 83540; 83550; 83605; 83615; 83690; 83735; 84157; 84484; 85025; 85060; 85610; 85730; 86850; 86900; 86901; 87040; 87070; 87077; 87149; 87186; 87205; 87491; 87591; 89051; 93005; 93010; 93306; 93312; 93976; 96374; C1751; J0692; J0696; J2060; J2272; J2405; J2704; J3411; J3430; J3475; J3490; J7030; P9035; P9047; P9059; Q9967